=== PATIENT | male | born 1950 | race Two or more races ===

== ENCOUNTER → 2018-11-01 | Outpatient (CLI) | payer OTHER ==
[~2018-11-01] MED LIST: AMOX500T3; CLAR250T; ESOM20CA
[2018-11-01 08:41] LABS: Basophils # (auto) 0 uL; Basophils % (auto) 0.7 % (0.0-2.0); Eosinophils # (auto) 0.1 uL; Eosinophils % (auto) 1.9 % (0.0-7.0); Hemoglobin 13.4 g/dL (13.5-17.5); Lymphocytes # (auto) 1.9 uL; Lymphocytes % (auto) 34.6 % (10.0-50.0); Mean Corpuscular Hemoglobin 26.7 pg (28.0-32.0); Mean Corpuscular Hgb Conc. 33.4 g/dL (32.0-36.0); Monocytes # (auto) 0.4 uL; Neutrophils % (auto) 55.8 % (37.0-80.0); Nucleated Red Blood Cells % 0.2 %; Platelet Count (auto) 268 10^3/uL (140-450); Red Cell Distribution Width 14.5 % (11.8-14.3); White Blood Cell 5.4 10^3/uL (4.4-10.8)
[2018-11-01 08:47] LABS: Urine Bacteria NONE SEEN /hpf (None Seen); Urine Blood Negative /uL (Negative); Urine Specific Gravity 1.016 (1.001-1.035); Urine WBC <1 /hpf (0 - 3)
[2018-11-01 09:09] LABS: Potassium 4.3 mmol/L (3.5-5.1)
[2018-11-01 09:28] LABS: Albumin 3.8 g/dL (3.4-5.0); BUN/Creatinine Ratio 16.7; Bilirubin, Total 0.2 mg/dL (0.2-1.0); Calcium 8.6 mg/dL (8.5-10.1); Total Protein 7.1 g/dL (6.4-8.2)
== END | disposition home or self-care (01) ==
LOC: LAB 07:26
PROVIDERS: ATTEND Internal Medicine
DX: Z00.00 Encounter for general adult medical examination without abnormal findings (principal)
CPT/HCPCS: 36415; 80053; 80061; 81001; 83036; 84439; 84443; 85025; 86803

== ENCOUNTER 2019-02-04 09:14 | Day surgery (SDC) | payer OTHER ==
[2019-02-01 16:31] LABS: Basophils % (auto) 0.7 % (0.0-2.0); Eosinophils # (auto) 0.1 uL; Monocytes # (auto) 0.5 uL; Nucleated Red Blood Cells % 0.1 %
[2019-02-01 16:33] LABS: Basophils # (auto) 0.1 uL; Eosinophils % (auto) 1.7 % (0.0-7.0); Hematocrit 41.3 % (41.0-53.0); Hemoglobin 13.8 g/dL (13.5-17.5); Lymphocytes % (auto) 28.9 % (10.0-50.0); Mean Corpuscular Hemoglobin 26.9 pg (28.0-32.0); Mean Corpuscular Hgb Conc. 33.4 g/dL (32.0-36.0); Mean Corpuscular Volume 80.7 fL (80.0-100.0); Monocytes % (auto) 7.2 % (0.0-12.0); Neutrophils # (auto) 4.2 uL; Neutrophils % (auto) 61.5 % (37.0-80.0); Platelet Count (auto) 312 10^3/uL (140-450); Red Blood Cells 5.12 10^6/uL (4.5-5.90); Red Cell Distribution Width 14.5 % (11.8-14.3); White Blood Cell 6.8 10^3/uL (4.4-10.8)
[2019-02-01 16:49] LABS: INR 0.91 (0.9-1.15); Partial Thromboplastin Time 29.6 sec (23.78-33.04)
[~2019-02-04] VITALS: Ht 165.1 cm; Wt 99.8 kg
[~2019-02-04 09:14] MED LIST changes: -AMOX500T3; -CLAR250T; -ESOM20CA; +ETOD200C27 PO; +NAPR375T27 PO; +TRAM50TA2 PO
[2019-02-04] MEDS ORDERED: SODIUM CHLORIDE LOCK 10 ML ONE (09:44)
[2019-02-04] MEDS ORDERED: diphenhdrAMINE HCL 50 MG/1 ML VL ONE (09:44)
[2019-02-04] MEDS ORDERED: fentaNYL CITRATE 100 MCG/2 ML VL ONE (09:44)
[2019-02-04] MEDS ORDERED: MIDAZOLAM HCL 5 MG/ML-1ML VIAL ONE (09:44)
[2019-02-04 10:35] VITALS: BP 125/76
== END 2019-02-04 12:00 | disposition home or self-care (01) ==
LOC: GI 09:14
PROVIDERS: ATTEND Internal Medicine Gastroenterology
DX: Z12.11 Encounter for screening for malignant neoplasm of colon (principal); R12 Heartburn; E66.9 Obesity, unspecified; H26.9 Unspecified cataract; Z87.11 Personal history of peptic ulcer disease; Z98.890 Other specified postprocedural states; Z79.899 Other long term (current) drug therapy; Z87.891 Personal history of nicotine dependence; Z68.36 Body mass index [BMI] 36.0-36.9, adult; Z85.3 Personal history of malignant neoplasm of breast; Z82.49 Family history of ischemic heart disease and other diseases of the circulatory system; Z80.9 Family history of malignant neoplasm, unspecified; Z72.89 Other problems related to lifestyle
CPT/HCPCS: 36415; 45378; 85025; 85610; 85730; J1200; J2250; J3010; J7030; 99152

== ENCOUNTER 2019-10-17 17:09 | Emergency (ER) | payer OTHER ==
[~2019-10-17] VITALS: Ht 180.3 cm; Wt 104.3 kg
[2019-10-17 19:38] VITALS: BP 132/68
== END 2019-10-17 20:06 | disposition home or self-care (01) ==
LOC: ER 17:09
DX: S91.311A Laceration without foreign body, right foot, initial encounter (principal); I83.891 Varicose veins of right lower extremity with other complications; X58.XXXA Exposure to other specified factors, initial encounter; Y93.89 Activity, other specified; Y99.8 Other external cause status; Y92.89 Other specified places as the place of occurrence of the external cause

== ENCOUNTER 2019-10-28 21:57 | Emergency (ER) | payer OTHER ==
[~2019-10-28] VITALS: Ht 177.8 cm; Wt 104.3 kg
[2019-10-28 23:55] VITALS: BP 141/73
== END 2019-10-29 00:46 | disposition home or self-care (01) ==
LOC: ER 21:58
DX: S81.811A Laceration without foreign body, right lower leg, initial encounter (principal); X58.XXXA Exposure to other specified factors, initial encounter; Y93.89 Activity, other specified; Y99.8 Other external cause status; Y92.89 Other specified places as the place of occurrence of the external cause
CPT/HCPCS: 12001

== ENCOUNTER → 2025-06-30 | Outpatient (CLI) | payer OTHER ==
[~2025-06-30] MED LIST changes: +ETOD200C2 PO; -ETOD200C27 PO; +NAPR-957 PO; -NAPR375T27 PO
== END | disposition home or self-care (01) ==
LOC: LAB 13:47
PROVIDERS: ATTEND Family Medicine
DX: Z01.812 Encounter for preprocedural laboratory examination (principal); D48.5 Neoplasm of uncertain behavior of skin

== ENCOUNTER 2025-07-11 08:19 | Outpatient (CLI) | payer OTHER ==
[2025-07-11 09:02] LABS: Anion Gap 8 (5-15); Calcium 8.8 mg/dL (8.7-10.4); Carbon Dioxide 28 mmol/L (20-31); Chloride 105 mmol/L (98-107); Potassium 4.5 mmol/L (3.5-5.1); Sodium 141 mmol/L (136-145)
[2025-07-11 09:07] LABS: Glucose 95 mg/dL (74-106)
[2025-07-11 09:08] LABS: BUN/Creatinine Ratio 14.4 (10.0-20.0); Blood Urea Nitrogen 14 mg/dL (9-23); Triglycerides 91 mg/dL (< 150)
[2025-07-11 09:09] LABS: Cholesterol 96 mg/dL (< 200)
[2025-07-11 09:10] LABS: HDL Cholesterol 32 mg/dL (40-59)
== END 2025-07-11 17:00 | disposition home or self-care (01) ==
LOC: LAB 08:19
PROVIDERS: ATTEND Internal Medicine
DX: E55.9 Vitamin D deficiency, unspecified
CPT/HCPCS: 36415; 80048; 80061; 82306; 83036

== ENCOUNTER 2025-07-24 08:47 | Outpatient (CLI) | payer OTHER ==
[~2025-07-24] VITALS: Ht 175.3 cm; Wt 103.4 kg
[2025-07-24] MEDS: REGADENOSON 0.4 MG/5 ML SYRG IV ONE ×2 (10:40→10:54)
--- NOTE | 2025-07-25 12:02 | DVHSR ---
APPROVED REPORT Exam: Nuclear Stress Test Indication: Chest pain BMI: 0 Stress Test Details Stress Test: Pharmacologic stress testing performed using 0.4 mg of regadenoson per 5 mL given IV ov er 10 seconds. HR Resting HR: 50 bpmMax Heart Rate (APMHR): 147.189677 bpm Max HR Achieved: 90 bpmTarget HR (85% APMHR): 124.460239 bpm % of APMHR: 61.22 Recovery HR: 65 bpm BP Resting BP: 120/64 mmHg Recovery BP: 123/64 mmHg ECG Resting ECG: Sinus Bradycardia Clinical Reason for Termination: Completed protocol Nurse Comments Recieved pt. from [facility]. A/Ox4 on RA. Connected to awake overnight monitor, VS stable. PIV flushes well. Re viewed POC. Pt. verbalized understanding of procedure including risks and side effects, agrees for st ress testing. Lexiscan stress test performed per protocol. [facility] tech administered Cardiolite. Pt. tolerated well . Pt. stable, no change on exam. VS returned to baseline. Transferred to [facility] via wheelchair w/ te ch. Stress ECG Conclusion lvef 59% no severe ischemia fixed inferior wall defect NM EXAM: Myocardial Perfusion REST/STRESS Imaging Protocol: Rest Tc-99m/Stress Tc-99m 1 day Resting Data Rest SPECT myocardial perfusion imaging was performed in supine position 60 minutes following the int ravenous injection of 10.4 mCi of Tc-99m Sestamibi. Time of rest injection: 09:07 Date: 07/24/2025 Time of rest imagin:07 Date: 07/24/2025 The images were gated to evaluate regional wall motion and calculate left ventricular ejection fracti on. Administration Route: IV Administration Site: Left Hand Pharmacologic Stress Pharmacologic stress test was performed by injecting Regadenoson 0.4 mg IV push followed by the intra venous injection of 29.4 mCi of Tc-99m Sestamibi. Time of stress injection: 10:58 Date: 07/24/2025 Time of stress imagin:58 Date: 07/24/2025 Administration Route: IV Administration Site: Left Hand Gated Stress SPECT was performed 60 minutes after stress injection. The images were gated to evaluate regional wall motion and calculate left ventricular ejection fracti on. Stress only was performed in the Supine position. Nuclear Conclusion Nuclear Findings: negative for ischemia lvef 59% no severe ischemia fixed inferior wall defect
== END 2025-07-24 17:00 | disposition home or self-care (01) ==
LOC: XYW 08:47
PROVIDERS: ATTEND Internal Medicine
DX: R00.1 Bradycardia, unspecified (principal); R07.9 Chest pain, unspecified
CPT/HCPCS: 78452; 93017; A9500; J2785

== ENCOUNTER 2025-08-14 07:32 | Outpatient (CLI) | payer OTHER ==
--- NOTE | 2025-08-16 17:12 | DVHSR ---
APPROVED REPORT EXAM: Two-dimensional and M-mode echocardiogram with Doppler and color Doppler. INDICATION Pre-Op RISK FACTORS Height: 70, Weight: 220 DIMENSIONS LVDd 4.1 (3.8-5.7cm) LA (2D) 3.8 (1.9-4.0cm) Aortic Root 3.7 (2.0-3.7cm) LVDs 2.6 (2.5-4.0cm) LA (MM) (1.9-4.0cm) Aortic Cusp Exc 2.2 (1.5-2.0cm) EF (%) 68.0 (55-70%) Rt. Atrium 4.1 (1.9-4.0cm) Asc. Aorta cm Mitral Valve Mitral Mitral Stenosis E wave 0.74m/s MV Mean GR. mmHg A wave 0.84m/s MV Peak GR. mmHg E/A ratio 0.9 2D MVA cm2 DECEL Time 216ms PRESS 1/2 Time ms Aortic Valve Aortic Valve Aortic Stenosis V1 1.20m/s AO Mean GR. 5mmHg V2 1.49m/s AO Peak GR. 9mmHg LVOT Diameter 2.1 (1.8-2.4cm) Doppler MARTIN 2.79cm2 AI P 1/2 Time 789.32ms Pulmonic Valve V2 0.72m/s Tricuspid Valve TR Velocity 2.59m/s RVSP 35mmHg Other Information Technically limited study due to body habitus. Conclusion Off axis views. Sinus rhythm. Aortic root enlargement with left atrial enlargement. Mild concentric LVH. EF of 60% with normal RV function. Valves appear to be structurally normal. Dopplers unremarkable. No pericardial effusion masses or vegetations
== END 2025-08-14 17:00 | disposition home or self-care (01) ==
LOC: XYW 07:32
PROVIDERS: ATTEND Internal Medicine
DX: Z01.810 Encounter for preprocedural cardiovascular examination (principal)
CPT/HCPCS: 93306